=== PATIENT | female | born 1970 | race Caucasian/White ===

== ENCOUNTER 2023-10-28 10:38 | Day surgery (SDC) | payer BC ==
[2023-10-24 16:07] VITALS: BMI 27.8
[2023-10-28] MEDS ORDERED: PROPOFOL 80 ML ONE (11:40)
[2023-10-28] MEDS ORDERED: LIDOCAINE HCL/PF 2% SDV 5ML VIAL ONE (11:40)
[2023-10-28 12:33] VITALS: PULSE 66; RESP 20; TEMP 97.1
[2023-10-28 12:44] VITALS: BP 92/50
== END 2023-10-28 12:40 | disposition home or self-care (01) ==
LOC: FASU-ENDO 10:38
PROVIDERS: ATTEND Internal Medicine Gastroenterology
PROC: 0DBN8ZX Excision of Sigmoid Colon, Via Natural or Artificial Opening Endoscopic, Diagnostic (ICD-10-PCS; 2023-10-28)
PROC: 0DBP8ZX Excision of Rectum, Via Natural or Artificial Opening Endoscopic, Diagnostic (ICD-10-PCS; principal; 2023-10-28 11:39)
DX: Z12.11 Encounter for screening for malignant neoplasm of colon (principal); D12.8 Benign neoplasm of rectum; K63.5 Polyp of colon; K64.1 Second degree hemorrhoids; K64.8 Other hemorrhoids; K57.30 Diverticulosis of large intestine without perforation or abscess without bleeding
CPT/HCPCS: 88305-TC

== ENCOUNTER 2024-11-30 08:23 | Day surgery (SDC) | payer BC ==
[2024-11-26 14:15] VITALS: BMI 27.1
[2024-11-30 11:02] VITALS: RESP 16; TEMP 97.4
[2024-11-30 11:33] VITALS: BP 110/64; PULSE 75
== END 2024-11-30 11:33 | disposition home or self-care (01) ==
LOC: FASU-ENDO 08:23
PROVIDERS: ATTEND Internal Medicine Gastroenterology
PROC: 0DB68ZX Excision of Stomach, Via Natural or Artificial Opening Endoscopic, Diagnostic (ICD-10-PCS; 2024-11-30)
PROC: 0DB98ZX Excision of Duodenum, Via Natural or Artificial Opening Endoscopic, Diagnostic (ICD-10-PCS; principal; 2024-11-30 10:47)
DX: K29.50 Unspecified chronic gastritis without bleeding (principal); B96.81 Helicobacter pylori [H. pylori] as the cause of diseases classified elsewhere
CPT/HCPCS: 88305-TC; 88342-TC